=== PATIENT | male | born 1945 | race Caucasian/White ===

== ENCOUNTER → 2016-09-26 | Outpatient (CLI) | payer MEDICARE ==
[~2016-09-26] MED LIST: ADVIL200 M2 PO; LISINOPRIL10 MG PO; PREVACID PO; ZYRTEC PO
--- NOTE | ~2016-09-26 | US37 ---
[facility] A Service of [facility] RADIOLOGY TEXT RESULTS PATIENT: ELLA PARMAR JR LOCATION: SNIV : 41 UNIT #: [id number] AGE: [address]: Betty Nelson MD SEX: M ORDER DR: [id number] [address] [address] [id number] O MR#: [id number] Acc #: [id number] NAME: ELLA PARMAR : 1945 SEX: M STUDY DATE/TIME: 09/26/2016 10:22 UNIT: [facility] ROOM: STUDY DESCRIPTION: US Carotid W/Doppler Bilateral Attending Physician: Betty Nelson M.D. Referring Physician: Betty Nelson M.D. Ordering Physician: Betty Nelson M.D. Primary Care Physician: Betty Nelson M.D. MEDICAL IMAGING REPORT This report is preliminary unless electronic signature is present. EXAM Bilateral carotid Doppler, 09/26/2016. REASON FOR EXAM Blurred vision, dizziness. FINDINGS The right common, internal and external carotid arteries are patent, without evidence of plaque or intimal thickening. Velocity of the common carotid artery is 45 cm/sec. Peak systolic velocity of the right proximal internal carotid artery is 37 cm/sec with an end-diastolic velocity of 10 cm/sec for an ICA/CCA ratio of 0.8. External carotid artery had a velocity of 72 cm/sec. The vertebral artery is visualized with antegrade flow. The left common carotid, internal carotid and external carotid arteries are patent, with mild plaque noted in the carotid bulb extending to the proximal internal and external carotid arteries. Velocity of the common carotid artery is 44 cm/sec. Peak systolic velocity of the left proximal internal carotid artery is 36 cm/sec with an end-diastolic velocity of 13 cm/sec for an ICA/CCA ratio of 0.81. External carotid artery had a velocity of 100 cm/sec. The vertebral artery is visualized with antegrade flow. IMPRESSION 1. Normal appearance without stenosis of the right internal carotid artery and less than 50% stenosis of the left internal carotid artery. 2. No significant stenosis of the right or left external carotid arteries. 3. Antegrade flow of the vertebral arteries. [facility]. [facility] A Service of [facility] RADIOLOGY TEXT RESULTS PATIENT: ELLA PARMAR JR LOCATION: [facility] : 43 UNIT #: [id number] AGE: [address]: Betty Nelosn MD SEX: M ORDER DR: Dictated by... Jethro Anguiano M.D. THIS IS AN ELECTRONICALLY VERIFIED REPORT Jethro Anguiano M.D. at 09/27/2016 8:58 AM [place]/elif TD: 09/27/2016 03:58 JOB #: [id number] MEDICAL IMAGING REPORT Page 1 of 1
== END | disposition home or self-care (01) ==
LOC: SNIV 10:22
DX: R42 Dizziness and giddiness (principal); H53.8 Other visual disturbances; I65.22 Occlusion and stenosis of left carotid artery
CPT/HCPCS: 93880